=== PATIENT | male | born 1970 | race African-American/Black ===

== ENCOUNTER 2022-10-12 06:51 | Day surgery (SDC) | payer OTHER ==
[~2022-10-12] VITALS: Ht 180.3 cm; Wt 61.2 kg
[2022-10-12] MEDS ORDERED: fentaNYL citrate 0.05 MG/ML VIAL ONE (07:32)
[2022-10-12] MEDS ORDERED: LIDOCAINE 2% 100 MG/5 ML UJET TP ONE (07:32)
[2022-10-12] MEDS: fentaNYL citrate 0.05 MG/ML VIAL IVP ONE (08:25)
== END 2022-10-12 09:30 | disposition home or self-care (01) ==
LOC: MOR 06:51 → MMU 07:01 → MOR 09:30
PROVIDERS: ATTEND Internal Medicine Gastroenterology
DX: Z12.11 Encounter for screening for malignant neoplasm of colon (principal); K63.5 Polyp of colon
CPT/HCPCS: 45385; J3010